=== PATIENT | female | born 1970 | race Caucasian/White ===

== ENCOUNTER → 2016-12-24 | Outpatient (CLI) | payer OTHER ==
--- NOTE | 2016-12-24 13:29 | XR ---
Lumbosacral spine HISTORY: Radiculopathy, back pain 5 views of the lumbosacral spine to include flexion and extension Lumbar vertebral bodies show preserved height, alignment, and bone mineralization. Some loss of disc height present at L4-5 and L5-S1 with associated spondylosis. Vacuum phenomenon present at L5-S1. The re is mild spinal curvature. No evident listhesis on flexion and extension views. IMPRESSION: Degenerative disc disease, consider lumbar MRI
== END ==
LOC: RADXRMAIN 10:38
PROVIDERS: ATTEND Psychiatry & Neurology Neurology
DX: M51.16 Intervertebral disc disorders with radiculopathy, lumbar region (principal)
CPT/HCPCS: 72110